=== PATIENT | male | born 1965 | race Caucasian/White ===

== ENCOUNTER → 2016-11-24 | Outpatient (CLI) | payer OTHER ==
[~2016-11-24] MED LIST: AMLO-298 PO; CELE200C PO; FEBU40TA PO
[2016-11-24 09:49] LABS: ASPARTATE AMINO TRANSFERASE 20 U/L (15-37); BLOOD UREA NITROGEN 14 mg/dL (7-18)
== END | disposition home or self-care (01) ==
LOC: STAR 08:38
PROVIDERS: ATTEND Urology
DX: Z01.818 Encounter for other preprocedural examination (principal); C61 Malignant neoplasm of prostate
CPT/HCPCS: 36415; 80053; 81003; 85025; 87086; 93005

== ENCOUNTER 2016-12-03 08:00 | Inpatient (IN) | payer OTHER ==
[~2016-12-03] VITALS: Ht 177.8 cm; Wt 106.8 kg
[2016-12-09] MEDS ORDERED: LACTATED RINGERS 1,000 ML IV SCH (06:09)
[2016-12-09] MEDS ORDERED: THROMBIN 5,000 UNIT VIAL TP ONE (06:36)
[2016-12-09] MEDS ORDERED: BUPIVACAINE/PF-EPI 0.25% 1:200K ONE (06:36)
[2016-12-09] MEDS ORDERED: MIDAZOLAM 1 MG/ML, 2ML ONE ×2 (07:05→12:19)
[2016-12-09] MEDS ORDERED: FENTANYL PF 250 MCG/5ML ONE (07:05)
[2016-12-09] MEDS ORDERED: HYDROmorphone 2 MG/ML, 1ML ONE ×2 (07:06→12:19)
[2016-12-09] MEDS ORDERED: ONDANSETRON 2MG/ML, 2ML ONE (07:21)
[2016-12-09] MEDS ORDERED: DEXAMETHASONE 4 MG/ML, 1ML ONE (07:21)
[2016-12-09] MEDS ORDERED: PROPOFOL 10 MG/ML, 20ML ONE (07:21)
[2016-12-09] MEDS ORDERED: CEFAZOLIN 1,000 MG ONE (07:21)
[2016-12-09] MEDS ORDERED: ROCURONIUM 10 MG/ML ONE (07:21)
[2016-12-09] MEDS ORDERED: METOCLOPRAMIDE 5 MG/ML, 2ML IV PRN (08:30)
[2016-12-09] MEDS ORDERED: LABETALOL 5MG/ML, 20ML IV PRN (08:30)
[2016-12-09] MEDS ORDERED: ONDANSETRON 2MG/ML, 2ML IVPush PRN (08:30)
[2016-12-09] MEDS ORDERED: hydrALAzine 20 MG/ML, 1ML IV PRN (08:30)
[2016-12-09] MEDS ORDERED: OXYcodone 5 MG/5 ML ORAL.SOL UDC PO PRN (08:30)
[2016-12-09] MEDS ORDERED: ACETAMINOPHEN 325 MG TABLET PO PRN (08:30)
[2016-12-09] MEDS: HYDROmorphone 1 MG/ML, 1ML IV PRN ×3 (12:25→13:35)
[2016-12-09] MEDS ORDERED: MEPERIDINE/PF 25MG/0.5ML ONE (12:34)
[2016-12-09] MEDS ORDERED: ACETAMINOPHEN 650 MG/20.3 ML UDC ONE (12:34)
[2016-12-09] MEDS ORDERED: FENTANYL PF 100 MCG/2ML ONE (12:34)
[2016-12-09] MEDS ORDERED: ACETAMINOPHEN 325 MG TABLET ONE (12:34)
[2016-12-09] MEDS ORDERED: OXYcodone 5 MG/5 ML ORAL.SOL UDC ONE (12:34)
[2016-12-09] MEDS ORDERED: MIDAZOLAM 1 MG/ML, 2ML IV PRN (13:00)
[2016-12-09] MEDS: FENTANYL PF 100 MCG/2ML IV PRN ×2 (13:14→13:24)
[2016-12-09] MEDS ORDERED: ONDANSETRON 2MG/ML, 2ML IV PRN (14:30)
[2016-12-09] MEDS: D5%-0.9% NACL+KCL 20MEQ 1,000 ML IV SCH ×2 (14:30→19:56)
[2016-12-09] MEDS ORDERED: LACTATED RINGERS 500 ML IVBOLUS PRN (14:30)
[2016-12-09] MEDS: CEFAZOLIN PMX 1GM/50ML 50 ML IVPB SCH ×2 (15:45→22:45)
[2016-12-09] MEDS: DIPHENHYDRAMINE 50 MG CAPSULE PO PRN ×2 (16:39→22:50)
[2016-12-09 19:09] VITALS: BP 135/89
[2016-12-10 00:07] VITALS: BP 149/88
[2016-12-10] MEDS: D5%-0.9% NACL+KCL 20MEQ 1,000 ML IV SCH ×2 (02:38→10:05)
[2016-12-10 03:56] VITALS: BP 138/88
[2016-12-10 05:02] LABS: BLOOD UREA NITROGEN 8 mg/dL (7-18)
[2016-12-10 07:13] VITALS: BP 136/82
[2016-12-10] MEDS ORDERED: ENOXAPARIN 40 MG/0.4 ML SQ SCH (08:00)
[2016-12-10] MEDS: OXYcodone/APAP 5/325MG TABLET PO PRN ×2 (09:08→13:10)
[2016-12-10] MEDS ORDERED: OXYC-302 PO (09:15)
[2016-12-10] MEDS ORDERED: FEBUXOSTAT 40 MG TABLET PO SCH (09:18)
[2016-12-10 11:57] VITALS: BP 162/95
[2016-12-10 13:30] VITALS: BP 149/95
[2016-12-11] MEDS ORDERED: VALSARTAN 320 MG TABLET PO SCH (09:30)
[2016-12-11] MEDS ORDERED: HYDROCHLOROTHIAZIDE 25 MG TABLET PO SCH (09:30)
[2016-12-11] MEDS ORDERED: AMLODIPINE 5 MG TABLET PO SCH (09:30)
== END 2016-12-10 13:33 | disposition home or self-care (01) | DRG 708 ==
LOC: ORIP 12-09 05:44 → 4NOR 12-09 14:14 → DCLOUNGE 12-10 13:24
PROVIDERS: ADMIT Urology; ATTEND Urology
PROC: 8E0W4CZ Robotic Assisted Procedure of Trunk Region, Percutaneous Endoscopic Approach (ICD-10-PCS; 2016-12-09)
PROC: 0VT04ZZ Resection of Prostate, Percutaneous Endoscopic Approach (ICD-10-PCS; principal; 2016-12-09 07:30)
DX: C61 Malignant neoplasm of prostate (principal); E78.5 Hyperlipidemia, unspecified; I10 Essential (primary) hypertension; M10.9 Gout, unspecified
CPT/HCPCS: 36415; 80048; 85014; 85018; 86850; 86900; 88309; C1729; J0690; J1100; J1170; J1650; J2250; J2270; J2405; J2704; J3010; C1760; J3480; J7120

== ENCOUNTER → 2016-12-16 | Outpatient (CLI) | payer OTHER ==
[~2016-12-16] MED LIST changes: +CYSTO CONRAY II 250 ML VIAL UR ONE; +OXYC-302 PO
== END | disposition home or self-care (01) ==
LOC: RAD 13:12
PROVIDERS: ATTEND Urology
DX: C61 Malignant neoplasm of prostate (principal)
CPT/HCPCS: 74430; Q9958

== ENCOUNTER → 2017-04-22 | Outpatient (CLI) | payer OTHER ==
[~2017-04-22] MED LIST changes: -CYSTO CONRAY II 250 ML VIAL UR ONE
== END | disposition home or self-care (01) ==
LOC: LAB 13:03
PROVIDERS: ATTEND Urology
DX: C61 Malignant neoplasm of prostate (principal)
CPT/HCPCS: 36415; 84153

== ENCOUNTER → 2017-10-04 | Outpatient (CLI) | payer OTHER ==
[2017-10-04 08:09] LABS: ALANINE AMINOTRANSFERASE 36 U/L (12-78); ALBUMIN 4.1 g/dL (3.4-5.0); ANION GAP 9 mmol/L (5-15); CALCIUM 8.5 mg/dL (8.5-10.1); CHLORIDE 105 mmol/L (98-107); CHOLESTEROL, TOTAL 181 mg/dL (140-239); CREATININE 0.95 mg/dL (0.7-1.3); TRIGLYCERIDES 148 mg/dL (50-200); VLDL CHOLESTEROL 30 mg/dL (0-25)
[2017-10-04 08:11] LABS: ALKALINE PHOSPHATASE 59 U/L (45-117); BILIRUBIN,TOTAL 0.5 mg/dL (0.2-1.0); CHOL/HDL RATIO 4.1; HDL CHOL % 24 % (26-37); HDL CHOLESTEROL (DIRECT) 44 mg/dL (40-60); LDL CHOLESTEROL,CALCULATED 107 mg/dL (54-169); LDL/HDL RATIO 2.4 (0.5-3.0)
== END ==
LOC: LAB 07:43
PROVIDERS: ATTEND Family Medicine
DX: I10 Essential (primary) hypertension (principal); E78.5 Hyperlipidemia, unspecified
CPT/HCPCS: 36415; 80053; 80061

== ENCOUNTER → 2018-01-13 | Outpatient (CLI) | payer OTHER | END | disposition home or self-care (01) | LOC: CFH 14:22 | PROVIDERS: ATTEND Physician Assistant | DX: Z08 Encounter for follow-up examination after completed treatment for malignant neoplasm (principal); Z85.46 Personal history of malignant neoplasm of prostate | CPT/HCPCS: 36415; 84153 ==

== ENCOUNTER → 2018-11-06 | Outpatient (CLI) | payer OTHER ==
[~2018-11-06] MED LIST changes: -AMLO-298 PO; +AMLO-307 PO
[2018-11-06 08:49] LABS: ALANINE AMINOTRANSFERASE 30 U/L (12-78); ALBUMIN 4.1 g/dL (3.4-5.0); ANION GAP 7 mmol/L (5-15); CALCIUM 9.2 mg/dL (8.5-10.1); CHLORIDE 108 mmol/L (98-107); CHOLESTEROL, TOTAL 214 mg/dL (140-239); CREATININE 1.08 mg/dL (0.7-1.3)
[2018-11-06 08:53] LABS: ALKALINE PHOSPHATASE 77 U/L (45-117); BILIRUBIN,TOTAL 0.3 mg/dL (0.2-1.0); CHOL/HDL RATIO 4.9; HDL CHOL % 21 % (26-37); HDL CHOLESTEROL (DIRECT) 44 mg/dL (40-60); LDL CHOLESTEROL,CALCULATED 127 mg/dL (54-169); LDL/HDL RATIO 2.9 (0.5-3.0); TRIGLYCERIDES 213 mg/dL (50-200); VLDL CHOLESTEROL 43 mg/dL (0-25)
== END | disposition home or self-care (01) ==
LOC: LAB 08:20
PROVIDERS: ATTEND Family Medicine
DX: E78.5 Hyperlipidemia, unspecified (principal); I10 Essential (primary) hypertension; M10.9 Gout, unspecified; Z85.46 Personal history of malignant neoplasm of prostate
CPT/HCPCS: 36415; 80053; 80061; 84153; 84550